=== PATIENT | male | born 1965 | race Caucasian/White ===

== ENCOUNTER 2017-10-26 15:06 | Emergency (ER) | payer BC ==
[2017-10-26 15:25] VITALS: BP 144/96
--- NOTE | 2017-10-26 16:29 | UC ---
Skin Complaint HPI - HPI Summary HPI Summary: 52 yo WM c/o extreme itchiness s/p rash on B/L LE and a couple on B/L forearms. Has been scratching it violently as it has been so itchy, thinks it started with sock irritation then he kept on manually irritating it and now has had it x4 weeks not getting better - History of Current Complaint Chief Complaint: UCRash Time Seen by Provider: 10/26/17 15:35 Stated Complaint: RASH Hx Obtained From: Patient Onset/Duration: Lasting Weeks Skin Exposure Onset/Duration: Weeks Ago Onset Severity: Severe Current Severity: Moderate Pain Intensity: 0 - Allergy/Home Medications Allergies/Adverse Reactions: Allergies Allergy/AdvReac Type Severity Reaction Status Date / Time amoxicillin Allergy Rash Verified 10/26/17 15:25 Home Medications: Home Medications Glucosam/Chondr/Collagn/Hyalur [Glucosamine & Chondroitin Cap] 1 cap PO [History] Review of Systems Constitutional: Negative Skin: Rash, Other - skin infection Eyes: Negative ENT: Negative Respiratory: Negative Cardiovascular: Negative Gastrointestinal: Negative Genitourinary: Negative Motor: Negative Neurovascular: Negative Musculoskeletal: Negative Neurological: Negative Psychological: Negative All Other Systems Reviewed And Are Negative: Yes PMH/Surg Hx/FS Hx/Imm Hx Previously Healthy: Yes - Surgical History Surgical History: Yes Surgery Procedure, Year, and Place: tonsilectomy - Social History Alcohol Use: Weekly Alcohol Amount: 3-4x's/week Substance Use Type: None Smoking Status (MU): Never Smoked Tobacco Have You Smoked in the Last Year: No Household Exposure Type: Cigarettes Physical Exam Triage Information Reviewed: Yes Vital Signs: Initial Vital Signs Temp 36.8 C 10/26/17 15:18 Pulse 94 10/26/17 15:18 Resp 18 10/26/17 15:18 BP 144/96 10/26/17 15:18 Pulse Ox 97 10/26/17 15:18 Eye Exam: Normal ENT Exam: Normal Dental Exam: Normal Neck exam: Normal Neck: Positive: 1 Respiratory Exam: Normal Cardiovascular Exam: Normal Abdominal Exam: Normal Musculoskeletal Exam: Normal Neurological Exam: Normal Psychological Exam: Normal Skin Exam: Normal Skin: Positive: significant lesion(s) - several patches of excoriated skin lesions biggest one on right calf and other satellite excoriated lesions scattered on calf small ones on B/L flexor surface of forearm Course/Dx - Course Course Of Treatment: dry skin eczema exacerbated by scratching - Diagnoses Provider Diagnoses: Dry skin eczema. Local skin infection. icthyosis Discharge - Sign-Out/Discharge Documenting (check all that apply): Discharge - Discharge Plan Condition: Stable Disposition: HOME Prescriptions: Cephalexin CAP* [Keflex CAP*] 500 mg PO QID 7 Days #28 cap Mupirocin 2% OINT* [Bactroban 2 % Oint*] 1 applic TOPICAL BID #1 tube Referrals: No Primary Care Phys,NOPCP [Primary Care Provider] - Additional Instructions: Please apply baby oil while in the shower and pat dry to maintain hydrated skin Humidifier at home - Billing Disposition and Condition Condition: STABLE Disposition: HOME
== END 2017-10-26 16:27 | disposition home or self-care (01) ==
LOC: UCEAST 15:06
DX: L85.3 Xerosis cutis (principal); L08.9 Local infection of the skin and subcutaneous tissue, unspecified; Q80.9 Congenital ichthyosis, unspecified; Z88.0 Allergy status to penicillin
CPT/HCPCS: 99212; G0463

== ENCOUNTER 2017-10-31 15:45 | Emergency (ER) | payer BC ==
[2017-10-31 15:52] VITALS: BP 140/91
--- NOTE | 2017-10-31 19:24 | UC ---
Kaushal Townsend Nikita, scribed for Nick Harris MD on 10/31/17 at 1609 . Skin Complaint HPI - HPI Summary HPI Summary: This patient is a 52 year old M presenting to [facility] with a chief complaint of pruritic rash since a couple of days ago s/p cutting a tree in his lawn. The CC is described as on his bilateral lower extremities and upper extremities, chest , and back. The patient rates the pain 2/10 in severity. Symptoms aggravated by nothing. Symptoms alleviated by nothing. Patient denies SOB, swelling of the tongue or lips, or feeling like his throat is closing. The patient reports that he is sensitive to poison oak. - History of Current Complaint Chief Complaint: UCRash Time Seen by Provider: 10/31/17 15:52 Stated Complaint: RASH Hx Obtained From: Patient Onset/Duration: Sudden Onset, Lasting Weeks, Still Present Skin Exposure Onset/Duration: Weeks Ago Onset Severity: Mild Current Severity: Mild Pain Intensity: 2 Pain Scale Used: 0-10 Numeric Location: Diffuse - bilateral lower extremities and upper extremities, chest, and back Character: Pruritus Aggravating Factor(s): Nothing Alleviating Factor(s): Nothing Associated Signs & Symptoms: Positive: Rash - Patient denies SOB, swelling of the tongue or lips, or feeling like his throat is closing. - Allergy/Home Medications Allergies/Adverse Reactions: Allergies Allergy/AdvReac Type Severity Reaction Status Date / Time amoxicillin Allergy Rash Verified 10/31/17 15:54 Review of Systems Skin: Rash - pruritic rash on his bilateral lower extremities and upper extremities, chest, and back ENT: Other - denies swelling of the tongue or lips, or feeling like his throat is closing Respiratory: Other - denies SOB All Other Systems Reviewed And Are Negative: Yes PMH/Surg Hx/FS Hx/Imm Hx Endocrine History: Other Other Endocrine History: No DM Cardiovascular History: Other Other Cardiovascular History: No CAD, HTN - Surgical History Surgical History: Yes Surgery Procedure, Year, and Place: tonsilectomy. Bilateral shoulders. Fx femur - Family History Known Family History: Positive: Other Family History: [place] - father - Social History Alcohol Use: Occasionally Alcohol Amount: 3-4x's/week Substance Use Type: None Smoking Status (MU): Never Smoked Tobacco Have You Smoked in the Last Year: No Household Exposure Type: Cigarettes Physical Exam - Summary Physical Exam Summary: VITAL SIGNS: Reviewed. GENERAL: ~Patient is a well-developed and nourished MALE who is lying comfortable in the stretcher. ~Patient is not in any acute respiratory distress. HEAD AND FACE: Normocephalic EYES: PERRLA, EOMI x 2. EARS: Hearing grossly intact. MOUTH: Oropharynx within normal limits. NECK: Supple, trachea is midline, no adenopathy, no JVD, no carotid bruit. CHEST: Symmetric, no tenderness at palpation LUNGS: Clear to auscultation bilaterally. No wheezing or crackles. CVS: Regular rate and rhythm, S1 and S2 present, no murmurs or gallops appreciated. ABDOMEN: Soft, non-tender. Bowel sounds are normal. No abdominal abnormal pulsations. EXTREMITIES: Full ROM in all major joints, no edema, no cyanosis or clubbing. NEURO: Alert and oriented x 3. No acute neurological deficits. Speech is normal and follows commands. SKIN: Dry and warm. Erythematous plaques in UE and LE, chest, abdomen, and back Triage Information Reviewed: Yes Vital Signs: Initial Vital Signs Temp 97.4 F 10/31/17 15:50 Pulse 91 10/31/17 15:50 Resp 18 10/31/17 15:50 BP 140/91 10/31/17 15:50 Pulse Ox 98 10/31/17 15:50 Vital Signs Reviewed: Yes Course/Dx - Course Course Of Treatment: This patient is a 52 year old M presenting to [facility] with a chief complaint of pruritic rash since a couple of days ago s/p cutting a tree in his lawn. I believe the patient has poison oak or poison [place]. Therefore, I will write a Rx for prednisone (oral and topical). He was given instructions to follow up with his PCP in the next couple of days and to go to the ED if he develops any SOB or swelling of the tongue or lips. The patient was found to have increased BP in UC. The patient will follow up with PCP for better control of BP. The pt is hemodynamically stable, alert and oriented x3. Plan of care was discussed with the patient, and patient understands and agrees. All questions were answered to patient satisfaction. There were no further complaints or concerns. - Differential Diagnoses - Skin Complaint Differential Diagnoses: Contact Dermatitis, Poison [place], Poison [place] - Diagnoses Provider Diagnoses: contact dermatitis, poison [place]/oak Discharge - Sign-Out/Discharge Documenting (check all that apply): Discharge - Discharge Plan Condition: Stable Disposition: HOME Prescriptions: predniSONE TAB* [Deltasone TAB*] 40 mg PO DAILY #10 tab Triamcinolone 0.1% CREAM(NF) [Kenalog Cream 0.1%(NF)] 1 applic TOPICAL BID #60 gm Patient Education Materials: Contact Dermatitis (ED), Poison [place] (ED) Referrals: [facility] [place] [facility] [Outside] No Primary Care Phys,NOPCP [Primary Care Provider] - Additional Instructions: Take medications as instructed Increase your fluid intake FOLLOW UP WITH YOUR PRIMARY CARE PROVIDER WITHIN ONE WEEK FOR HIGH BLOOD PRESSURE NOTED TODAY. RETURN TO URGENT CARE FOR ANY WORSENING OR NEW SYMPTOMS. The documentation as recorded by the Kaushal valladares Nikita accurately reflects the service I personally performed and the decisions made by , Nick Harris MD.
== END 2017-10-31 16:20 | disposition home or self-care (01) ==
LOC: UCEAST 15:45
DX: L23.7 Allergic contact dermatitis due to plants, except food (principal)
CPT/HCPCS: 99212; G0463